=== PATIENT | female | born 1945 | race Caucasian/White ===

== ENCOUNTER 2024-01-15 10:12 | Emergency (ER) | payer OTHER, SELFPAY ==
[2024-01-15 10:23] VITALS: BP 99/71
[2024-01-15 10:33] VITALS: BP 99/71
[2024-01-15 10:42] VITALS: BP 107/75
[2024-01-15 10:50] VITALS: BP 107/75
--- NOTE | 2024-01-15 10:55 | ED.GENMED ---
History of Present Illness
General
Chief Complaint: Fainting/Passed Out
Source: patient
Time Seen by Provider: 01/15/24 10:32
Travel History
Have you had any contact with someone who has COVID-19?: No
Do you have any symptoms of coronavirus? Fever > 100 degrees, chills, cough, shortness of breath, sore throat, loss of taste or smell, muscle aches, or headache?: No
History of Present Illness
History of Present Illness:
78-year-old female presents to the emergency room after having a syncopal episode. Patient was experiencing a nosebleed. They reside at [facility] and so the security staff/instructional design specialist were attempting to get her nose bleed controlled. During this
interaction the patient became lightheaded and essentially passed out. states the patient was out for just a few seconds. She is back to baseline now. She did have a syncopal episode about 15 years ago that was diagnosed as a vasovagal
event.
Phy Exam
Physical Exam
Physical Exam:
General: Awake, Alert, Oriented X3. No acute distress.
Vitals: unremarkable
Head: Atraumatic
Eyes: Pupils equal, EOMI
Throat: Airway intact, no exudates
Neck: Trachea midline
Lungs: Clear and equal b/l
Heart: Regular rate, no murmurs
Abd: Soft, Nontender, No pulsatile mass
Neuro: Nonfocal
Skin: Warm, dry, no rash
Extremities: pulses equal b/l, no edema
Course
Orders/Labs/Results
Orders:
Orders
01/15/24 10:34
EKG [Electrocardiogram (*1)] Urgent
Reason for Study: Syncope
EKG- Treatment ONCE
01/15/24 10:59
Basic Metabolic Panel Urgent
Complete Blood Count/With Diff Urgent
Abnormal Lab Results
01/15/24
10:59
MCHC 32.7 L g/dL
(33.0-37.0)
BUN 18 H mg/dl
(7-17)
Glucose 118 H mg/dl
(70-99)
01/15/24 10:59
01/15/24 10:59
Vital Signs
Initial and Last Documented VS:
Initial Vital Signs
Pulse Resp Pulse Ox
78 13 95
01/15/24 10:21 01/15/24 10:21 01/15/24 10:21
Last Documented Vital Signs
Temp Pulse Resp BP Pulse Ox
98.5 F 59 15 107/75 96
01/15/24 10:45 01/15/24 12:00 01/15/24 12:00 01/15/24 10:50 01/15/24 12:00
MDM/Problems Addressed
Differential Diagnosis Includes:
Syncope from anemia, syncope from dysrhythmia, syncope from vasovagal event
MDM/Problems Addressed:
Patient has had no further epistaxis. She was able to ambulate without difficulty. Labs are unremarkable. Suspect vasovagal syncope from the epistaxis. Stable for discharge home at this time. EKG h shows no acute abnormality
*Pulse Oximetry
Patient hypoxic: no
*EKG
Interpreted by ED Provider?: Yes
Interpretation: normal
Heart Rate: 68
Rate: normal
Rhythm: sinus
[place]: normal axis
Interval: normal interval
QRS Pattern: normal QRS
Ischemia: no ischemia
*Dermatology Sales Representative Interpretation
Rate: normal
Interpretation: normal
Rhythm: sinus
*Critical Care Note
Total Time (30-74mins, 75-104mins- exclusive of procedures): Not Applicable
Patient Management
Social determinants of health affecting care: Living situation and Strong social support
ED Attending Note
-
Portions of this chart may have been created with voice recognition software.� Occasional wrong word or��sound alike� substitutions may have occurred due to the inherent limitations of voice recognition software.
Discharge Plan
Departure
Patient Disposition: Home (Routine Discharge)
Date of Disposition: 01/15/24
Time of Disposition: 12:11
Patient with high blood pressure during this ER visit?: No
Condition: Good
Discharge Problem:
Syncope
Instructions: Syncope (Fainting) (DC), Nosebleeds ED
Referrals:
Emi Braxton MD [Family Provider] -
Interventions
Interventions:
*Risk Screen - Suicide Last Done: 01/15/24 10:33
*General Assessment Last Done: 01/15/24 10:33
*Neglect/Abuse Screening Last Done: 01/15/24 10:33
ED- Fall Risk Assessment Last Done: 01/15/24 10:46
*ED COVID-19 Vaccine History Last Done: 01/15/24 10:49
ED- Cardiac Assessment Last Done: 01/15/24 10:46
ED- Neurological Assessment Last Done: 01/15/24 10:46
Discharge Date and Time
Print Language: [id number]
[2024-01-15 11:09] LABS: % Basophils 0.7 % (0-2); % Eosinophils 3.5 % (0-6); % Immature Granulocytes 0.3 % (0-0.5); % Lymphocytes 37.4 % (20.5-51.1); % Monocytes 6.8 % (1.7-9.3); % Neutrophils 51.3 % (42.2-75.2); Absolute Basophils 0.1 10^3/uL (0-0.2); Absolute Eosinophils 0.2 10^3/uL (0-0.7); Absolute Lymphocytes 2.5 10^3/uL (1.2-3.4); Absolute Monocytes 0.5 10^3/uL (0.1-0.6); Absolute Neutrophils 3.5 10^3/uL (1.4-6.5); Hematocrit 44.4 % (37.0-47.0); Hemoglobin 14.5 g/dL (12.0-16.0); Mean Corp Hgb Conc. 32.7 g/dL (33.0-37.0); Mean Corpuscular Volume 94.9 fL (81.0-99.0); Mean Platelet Volume 9.6 fL (7.4-10.4); Nucleated Red Blood Cells % 0 %; Platelet Count 243 10^3/uL (130-400); Red Blood Cell Count 4.68 10^6/uL (4.20-5.40); Red Cell Dist. Width 12.8 % (11.5-14.5); White Blood Cell Count 6.8 10^3/uL (4.8-10.8)
[2024-01-15 11:27] LABS: Blood Urea Nitrogen 18 mg/dl (7-17); Calcium 9.8 mg/dl (8.4-10.2); Carbon Dioxide 26 mmol/L (22-30); Chloride 102 mmol/L (98-107); Glucose 118 mg/dl (70-99); Sodium 137 mmol/L (135-145); eGFR > 60.00
== END 2024-01-15 12:38 | disposition home or self-care (01) ==
LOC: EMR 10:12
PROVIDERS: EMERGENCY PHYSICIAN Emergency Medicine; FAMILY PHYSICIAN Internal Medicine Geriatric Medicine
DX: R55 Syncope and collapse (principal)
CPT/HCPCS: 99284; 80048; 85025; 93005